=== PATIENT | male | born 1970 | race Caucasian/White ===

== ENCOUNTER → 2021-09-11 11:15 | Outpatient (CLI) | payer OTHER, SELFPAY ==
[2021-09-11 14:01] LABS: COVID-19 CEPHEID PCR (VTM/NP) Negative (Negative)
== END ==
PROVIDERS: PCP Physician Assistant; Visit Provider Family Medicine Sleep Medicine
DX: Z20.822 Contact with and (suspected) exposure to COVID-19 (principal)
CPT/HCPCS: C9803; U0003; U0005

== ENCOUNTER 2021-09-15 15:19 | Observation (INO) | payer OTHER, SELFPAY ==
[2021-09-10 12:44] VITALS: BMI 22.2
[2021-09-14] VITALS (20 sets, daily range): BP systolic 81–126; BP diastolic 3–86; PULSE 60–97; RESP 10–20; TEMP 35.6–37.3; O2SAT 89–100; BMI 22.2
--- NOTE | 2021-09-14 | DI.RAD.S_ITS ---
PROCEDURE: XR LUMBAR SPINE 2-3V INDICATIONS: L3-4 L4-5 L5-S1 TLIF TECHNIQUE: 2 views of the lumbar spine were acquired. COMPARISON: None. FINDINGS: Spot fluoroscopic images demonstrate posterior fusion from L3 through S1 with intervertebral spacers. There is trace retrolisthesis of L3 on L4, L4 on L5 and L5 on S1. Hardware appears intact. IMPRESSION: Posterior fusion as above. Dictated by: Norma Saldivar M.D. on 09/14/2021 at 20:32 Approved by: Norma Saldivar M.D. on 09/14/2021 at 20:33
--- NOTE | 2021-09-14 07:44 | SUR.PREOP ---
Pre-op medications placed per [place]. Pt with hx PONV.
--- NOTE | 2021-09-14 07:47 | PM.PREOP ---
Pre-operative Note COVID-19 COVID-19 status: Negative Result date/Date tested (Pos, Neg/Pending): 09/13/21 Criteria for continued procedure: Expected advancement of disease process, Possibility delay results in more complex future surgery or treatment, Increased loss of function, Continuing or worsening of significant or severe pain, Deterioration of the patient's condition or overall health and Delay expected to result in less-positive ultimate med/surg outcome Interval Note History & Physical reviewed/Exam performed by Physician: Yes Changes to H&P: No
[2021-09-14] MEDS: GABAPENTIN 300 MG CAPSULE 900 MG PO (07:48)
[2021-09-14] MEDS: SCOPOLAMINE 1 PATCH TOP (07:49)
--- NOTE | 2021-09-14 08:37 | SUR.OPER ---
Prone on spine table, head in foam head support, padded chest and pelvic supports, gel pad at knees, lower legs supported by pillows; nipples, genitalia and toes free of pressure, arms secured on foam padded arm boards at <90 degrees abduction. Tape over blanket at thigh secured to table.
[2021-09-14] MEDS: CEFAZOLIN 2 GM/20 ML SYRINGE IV ×2 (08:45→17:59)
[2021-09-14] MEDS: LACTATED RINGERS 1,000 ML 42 ML IV ×4 (08:47→15:53)
[2021-09-14] MEDS: BUPIVACAINE 0.25% (PF) 30 ML, EPINEPHrine 0.3 MG INJ (08:48)
[2021-09-14] MEDS: BUPIVACAINE LIPOSOME 266 MG/20 ML VIAL INJ (08:48)
[2021-09-14] MEDS: THROMBIN (RECOMBINANT) 5,000 UNIT VIAL 5000 UNIT TOP (10:41)
--- NOTE | 2021-09-14 14:18 | P.OP_ITS ---
Operative Date/Time/Diagnoses Date of procedure: 09/14/21 Time of procedure: 07:45 Pre-op diagnosis: 1. L3-4, L4-5, L5-S1 post laminectomy syndrome 2. L3-4, L4-5, L5-S1 foramen stenosis with radiculopathy Post-op diagnosis: same Procedure & Clinicians Procedure: 1. L3-4, L4-5, L5-S1 Postero-lateral and posterior interbody fusion 2. L3-4, L4-5, L5-S1 interbody cage placement. 3. L3-4, L4-5, L5-S1 decompressive laminectomy with bilateral facetecomies 4. L3-4, L4-5, L5-S1 Posterior segmental instrumentation 5. [place] of bone marrow from iliac crest 6. Utilization of microsurgical technique and operating microscope 7. Utilization of robotic navigation Same procedure as scheduled: Yes Indications: Patient has been having chronic back pain and worsening lumbar radiculopathy. Patient failed multiple conservative management with worsening pain weakness and numbness in her lower extremity. Patient has been having difficulty performing activity of daily living. After discussing risks benefits of treatment options, patient elected proceed with surgery. Surgeon: Ravin Benitez [employer] Teacher: Dipika Mas Click Yes if Unassisted: No Anesthesia Type: General Operative Notes Closure Type: primary Specimen(s): none sent Prosthetic devices, grafts, tissues, transplants, or devices: Globus CREO MIS screws, Rise cages Applied: catheter Estimated Blood Loss (mL): 450 Blood products transfused: none Procedure in detail: Patient was seen in the preoperative area. Risks and benefits of the surgery was discussed with the patient. Informed consent was obtained from the patient and placed in the chart. Surgical site was marked. Patient was taken to the operative room. General anesthesia was administered. Prophylactic antibiotic was given to the patient less than 30 min before the incision was made. Patient was placed into a prone position on the Hayes table. Patient's back was then prepped and draped in the sterile fashion. Time-out was performed at this time. After patient was prepped and draped, patient's PSIS was palpated and marked bilaterally. Small 1 cm incision was made over the PSIS for placement of the reference probes. Two trocar was placed into the PSIS 1 on each side. The reference probe was attached to the trocar of the reference apparatus. At this time the C-arm imaging was used to confirm AP and lateral of L3-4, L4- L5, L5-S1 vertebrae and merged the C-arm imaging using the [employer] robotic navigation system with the CT of the lumbar spine. After successful merging was completed and confirmed, skin marker was used to cesario out the skin incision using the [employer] robotic arm. Bilateral incision was made at this time. Pre templated trajectory was used and guided using the [employer] robotic navigation system for bilateral L3, L4, L5, S1 pedicle screw placement. This was done by using the robotic arm to guide the high-speed bur to make a cortical entry point. Next a drill was placed also using the robotic arm and guided using the navigation system drilling partially through bilateral L3, L4, L5 and S1 pedicles. Next L3, L4, L5, S1 pedicle screws it was pre templated and measured was placed onto the power dray driver and inserted into the pedicles bilaterally. After all 8 screws were placed C-arm imaging was taken of both AP and lateral to confirm the placement. Excellent placement of the screws were confirmed and a matched precisely with the pre planned screw placement using the navigation system. MARs retractor was inserted using [facility]. Globus MARS retractors was placed inside the incision and docked onto the L3, L4 and L5 lamina. Using microsurgical technique and operating microscope, a L3, L4, L5 laminectomy and L3-4, L4-5, L5-S1 facetectomy was performed using a Kerrison rongeur. Patient was found have severe lateral recess and neural foramen stenosis which was fully decompressed after the laminectomy facetectomy. More than 75% of the facets were removed during the process of decompression rendering L3-4, L4-5, L5-S1 level grossly unstable and required a fusion procedure at the same time. Patient was found to have significant amount of epidural scarring which was carefully released from the dura and nerves in the process of decompression at all 3 levels. The disc space at L3-4, L4-5, L5-S1 was identified, and a total diskectomy was performed at L3-4, L4-5, L5-S1 level. The endplates were decorticated using a rasp and shaver. The total diskectomy and decortication was performed at L3-4, L4-5, L5-S1 level in order to to accomplish a L3-4, L4-5, L5-S1 fusion. The local bone from the laminectomy and facetectomy was saved for local bone grafting. After the total diskectomy and decortication was completed, Trifecta bone graft material was combined with local bone that was harvested earlier. At this time, a separate skin is incision was made over the iliac crest. A Jamshidi needle was inserted into the iliac crest through a separate skin incision. 5 cc of bone marrow aspiration was obtained through the separate skin incision using a Jamshidi needle from the iliac crest. The bone marrow aspiration was combined with local bone and the Trifecta bone grafting material. The bone grafting material was placed into the L3-4, L4-5, L5-S1 interbody space along with a expandable cage. The cage was expanded to its maximum height using the torque limiting screwdriver. The disc preparation as well as the cage insertion were also performed under navigation guidance. After the cage was placed, AP and lateral C-arm imaging was taken to confirm placement of the cage and excellent position was confirmed. Globus MARS retractor was inserted and docked onto the L3-4, L4-5, L5-S1 posterolateral gutter on the right side. Using the power drill, posterior- lateral decortication was performed at L3-4, L4-5, L5-S1 level until bleeding cortical bone was identified. The remaining bone grafting material was placed into the L3-4, L4-5, L5-S1 posterior lateral gutter he order to accomplish posterolateral fusion at the L3-4, L4-5, L5-S1 level. At this time the tulips were attached to the L3, L4, L5, S1 pedicle screw shanks. After measuring the length of the rods, they were inserted into the tulips of the pedicle screws and locked in place using locking caps and torque limiting screwdriver bilaterally. Total 6 caps and 2 titanium rods was used in order to complete the posterior instrumentation construct. After all the hardware was placed, and confirmed with AP and lateral C-arm imaging, the wound was then irrigated with sterile normal saline and packed with Ray-Jairo gauze for 3 min to accomplish hemostasis. After the gauze was removed the deep fascia was closed with #1 Vicryl suture. The subcutaneous layer was closed with 2-0 Vicryl. The skin was closed with skin susan. Patient tolerated the procedure well. There were no complications. Neuro monitoring system was used to monitor patient's neurologic status throughout entire procedure. There was no disturbance of the neural monitoring signals throughout the case. Patient's bladder stimulator and wire was protected during entire case with the course of the wire and the machine visualized on x-ray at the beginning of the case and revisualized the end of the case which showed no changes and the wire position. Complications: none Post-operative Condition: stable Disposition: PACU Plan for aftercare: Admit to inpatient hospital
[2021-09-14] MEDS: LORazepam 2 MG/ML INJ 1 MG IM (15:03)
[2021-09-14] MEDS: SODIUM CHLORIDE 0.9% 1,000 ML 100 ML IV (17:47)
--- NOTE | 2021-09-14 18:14 | PC.NURSE ---
Pt arrived to room 214 via bed from PACU. Pt is sleepy but appropriate and calm and answers questions when asked. Spouse at the bedside. SCDs on and running. IV infusing as ordered. Given dinner tray and water to drink. Denies nausea and sob. Pt oriented to room, demonstrated how to use call light, tv controls, and bed controls. Bed alarm on for safety. Educated about not getting up without assistance. Discussed not bending at the waist, twisting, or lifting as ordered.
[2021-09-14] MEDS: HYDROMORPHONE 0.5 MG INJ IV (19:59)
[2021-09-14] MEDS: DIVALPROEX ER 250 MG TAB 500 MG PO (20:12)
[2021-09-14] MEDS: GABAPENTIN 600 MG TABLET 1800 MG PO (20:12)
[2021-09-14] MEDS: DOCUSATE 100 MG CAPSULE PO (20:12)
[2021-09-14] MEDS: buPROPion 75 MG TABLET PO (20:12)
[2021-09-14] MEDS: LOSARTAN 50 MG TABLET PO (20:13)
[2021-09-14] MEDS: PRAZOSIN 1 MG CAPSULE 6 MG PO (20:13)
[2021-09-14] MEDS: SENNOSIDES 8.6 MG TABLET 17.2 MG PO (20:13)
[2021-09-14] MEDS: OXYCODONE IR 5 MG TABLET 10 MG PO (22:28)
[2021-09-14] MEDS: hydrOXYzine pamoate 25 MG CAPSULE PO (22:29)
--- NOTE | 2021-09-14 22:54 | PC.NURSE ---
Patient is alert and oriented. Breath sounds CTA with RA sat of 100%. HRR. Denies nausea. BT hypoactive and denies flatus as yet following surgery. Indwelling catheter is patent; urine is clear yellow. Is able to turn himself in bed although does not adhere to log rolling instructions. Dressing to back intact; 50% covered with shadow drainage. States he has chronic tingling in all extremities but feels it has improved from pre-op sensation. Did complain of 7/10 pain earlier and was medicated with IV Dilaudid with good results and now again at 7/10 and agreeable to trying po pain meds so medicated with oxycodone + vistaril and ice pack provided. Bilateral foot SCD's applied. Reports having fallen twice in past 3 months so fall risk score is high and bed alarm is activated.
[2021-09-15] VITALS (13 sets, daily range): BP systolic 101–155; BP diastolic 52–67; PULSE 72–99; RESP 18–19; TEMP 36.1–38.8; O2SAT 96–99
[2021-09-15] MEDS: CEFAZOLIN 2 GM/20 ML SYRINGE IV (01:09)
[2021-09-15] MEDS: SODIUM CHLORIDE 0.9% 1,000 ML 100 ML IV ×3 (03:06→22:24)
[2021-09-15] MEDS: OXYCODONE IR 5 MG TABLET 10 MG PO ×4 (04:43→18:23)
[2021-09-15] MEDS: hydrOXYzine pamoate 25 MG CAPSULE PO ×2 (04:44→18:23)
[2021-09-15 05:37] LABS: Hematocrit 29.8 % (41-53); Hemoglobin 10.2 g/dL (13.5-17.5)
--- NOTE | 2021-09-15 07:45 | PM.PNPO.1 ---
Subjective Subjective Date Patient Seen: 09/15/21 Time Patient Seen: 07:45 Interval history: Pain is moderate. Denies fever or chills. No nausea / vomiting. Exam Vital Signs (past 8 hours): - 09/15/21 00:25 09/15/21 04:45 Temperature 99.3 F 98.6 F Pulse Rate 72 95 H Respiratory Rate 18 18 Blood Pressure 105/64 109/63 Pulse Oximetry 99 97 Oxygen Delivery Method Room Air Oxygen Flow Rate 0 Narrative Exam Narrative: 51-year-old male resting comfortably in bed in no apparent distress. Motor functions intact bilateral lower extremities. Sensation grossly intact to light touch bilateral lower extremities. Dressing is Clean, dry, intact.. Const General: cooperative Orientation: alert Resp Effort & Inspection: normal respiratory effort and able to speak in complete sentences Objective Labs Result Diagrams: 09/15/21 04:43 Labs: Laboratory Results - last 24 hr 09/15/21 04:43 Hgb 10.2 L Hct 29.8 L PFSH Medical History Anger Anxiety Asthma Depression Heart murmur HTN (hypertension) Increased storage iron Post-laminectomy syndrome Presence of neurostimulator PTSD (post-traumatic stress disorder) Sciatica Spinal stenosis TBI (traumatic brain injury) (2010) Surgical History H/O vasectomy (1996) History of fusion of cervical spine (06/03/11) History of fusion of cervical spine (2013) History of placement of ear tubes Hx of arthroscopy of right knee Hx of laminectomy (2014) Hx of tonsillectomy Social History household members: spouse and family Smoking Status: Never smoker alcohol intake: current Assessment & Plan Post-op Postoperative Procedures: Procedures Operation Date: 09/14/21 07:45 Actual Procedure Side Surgeon p L3-4, L4-5, L5-S1 TLIF w. posterior instrumentation - Robot Ravin Benitez MD Postoperative day: 1 Postoperative status: doing well Postoperative plan: routine post-op care Postoperative plan narrative: Mobilize with physical therapy Limit bending, lifting, twisting Multimodal pain management Disposition: Home today or tomorrow after physical therapy
[2021-09-15] MEDS: LOSARTAN 50 MG TABLET PO (08:02)
[2021-09-15] MEDS: GABAPENTIN 600 MG TABLET 1800 MG PO ×2 (08:02→20:14)
[2021-09-15] MEDS: DOCUSATE 100 MG CAPSULE PO ×2 (08:03→20:15)
--- NOTE | 2021-09-15 09:40 | PT.IIE ---
Current Diagnoses Spinal stenosis, lumbar region with neurogenic claudication (09/14/21) Postlaminectomy syndrome, not elsewhere classified (09/14/21) Surgery Performed Operation Date: 09/14/21 07:45 Actual Procedures p L3-4, L4-5, L5-S1 TLIF w. posterior instrumentation - Robot - Ravin Benitez MD Medical History (Last Reviewed 09/15/21 @ 07:46 by Ronnie Robins PA-C) Anger Anxiety Asthma Depression Heart murmur HTN (hypertension) Increased storage iron Post-laminectomy syndrome Presence of neurostimulator PTSD (post-traumatic stress disorder) Sciatica Spinal stenosis TBI (traumatic brain injury) (2010) Physical Therapy Inpatient Evaluation/Re-Eval M1 PT/OT-IP Prior Functional Status Start: 09/15/21 12:35 Freq: NEEDED Status: Active Protocol: Document 09/15/21 09:40 AB (Rec: 09/15/21 12:48 AB [email or web address]) Medical Review Prior Functional Status Medical History Reviewed Yes Communication able to make needs known Mobility and Gait pt stated that he is modified independent with all mobilities and ambulation using 4WW indoors and hiking stick for outdoor mobility Social History Household Members spouse,family Living Arrangements Mobile home Number of Floors (Floors) One Floor Number of Stairs To Enter/Railing? 3 steps B rails to enter Home Environment High Toilet,Walk in Shower Home Equipment Four Wheel Walker,Shower Seat with Backrest,Hand Held Shower ,Grab Bars Near Toilet,Grab Bars In Shower Additional Social History Comment has hiking stick M2 PT-IP Current Condition Start: 09/15/21 12:35 Freq: NEEDED Status: Active Protocol: Document 09/15/21 09:40 AB (Rec: 09/15/21 12:48 AB [email or web address]) Physical Therapy Current Condition Current Condition Evaluation Date 09/15/21 Treatment Diagnosis s/p L3-4,L4-5, L5S1 TLIF; difficulty in walking Onset Date 09/14/21 M3 PT-IP Subjective Start: 09/15/21 12:35 Freq: NEEDED Status: Active Protocol: Document 09/15/21 09:40 AB (Rec: 09/15/21 12:48 AB [email or web address]) Subjective Physical Therapy Visit Type Type Initial Evaluation Visit Start Time 09:40 Visit Stop Time 10:21 Total Visit Minutes 41 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 0 Physical Therapy Visit Comments Patient Comments agreeable to do PT Therapy Pain Assessment Pain When Pain Assessed At Rest Pain Present Pain Present Pain Reported Location Lower Back Intensity 8 Scale Used Numeric (0 - 10) Pain Management Techniques Apply Cold,Distraction, Modification of Treatment,Re- positioning,Timing of Activity with Medications M4 PT-IP Mobility and Gait Start: 09/15/21 12:35 Freq: NEEDED Status: Active Protocol: Document 09/15/21 09:40 AB (Rec: 09/15/21 12:48 AB [email or web address]) PT-Bed Mobility Assessment Rolling Type of Rolling Log Rolling Level of Assist Standby Assistance Supine to Sit Supine to Sit Standby Assistance PT-Transfer Assessment Sit to and From Stand Sit to and from Stand Minimal Assistance,1 Person Assistance,Use of Upper Extremities Equipment Transfer Assistive Device Gait Belt,Front Wheeled Walker Orthotic/Prosthetic Devices or Brace: No Transfers Transfer Destination Chair Transfer Technique Stand Step Pivot Transfer Ability Level of Assist Minimal Assistance Comments Mobility Comments educated pt on back precautions and log roll bed mobility. pt c/o decrease RLE sensation. BPin supine: 104/ 54 completed supine to sit log roll SBA. c/o initial dizziness but dissipated after a few minutes. BP with sitting 98/52. completed sit to stand min A and step transfer to chair using FWW min A. BP checked: 106/60. pt agreed to ambulate. completed sit to stand min A from the chair and ambualtion ~ 30 ft using FWW min A and cues. pt agreed to sit up on chair. positioned on chair. call ight and table placed within reach. caregiver training set up for this afternoon at ~ 130 pm. Gait Assessment Gait Gait Assistance Required: Minimum Assistance Distance (Feet) 30 Able to Maintain Weight Bearing Status Yes During Gait Assistive Devices Assistive Device Gait Belt,Front Wheeled Walker Orthotic/Prosthetic Devices or Brace: No Gait Deviations General Gait Pattern Decreased Stride Length, Decreased Feet Clearance Factors Limiting Gait Function Factors Limiting Gait Function Decreased Activity Tolerance, Decreased Sensation,Decreased Strength,Limited Range of Motion,Pain,Poor Balance,Poor Safety Awareness Comments Gait Comments pls refer to mobility section for details PT-Balance Assessment Sitting Balance and Reactions Static Sitting Balance Ability Good Dynamic Sitting Balance Ability Good Standing Balance and Reactions Static Standing Balance Ability Fair Dynamic Standing Balance Ability Fair Device Used FWW M5 PT-IP Objective Assessments Start: 09/15/21 12:35 Freq: NEEDED Status: Active Protocol: Document 09/15/21 09:40 AB (Rec: 09/15/21 12:48 AB [email or web address]) Orientation Orientation/Cognition Level of Alertness Alert Orientation Name Language Function Ability No Deficits Noted Safety Awareness Understands Safety Issues Memory Description No Deficits Noted Gross Range of Motion Lower Extremity ROM Assessment Within Functional Limits Strength Lower Extremity Strength Assessment Bilaterally Impaired Hip 3+/5 Knee 3+/5 Sensation Assessment Sensation Gross Sensation Right LE Impaired Sensation Description Numbness,Tingling Muscle Tone Muscle Tone WNL Yes M6 PT-IP Treatment Start: 09/15/21 12:35 Freq: NEEDED Status: Active Protocol: Document 09/15/21 09:40 AB (Rec: 09/15/21 12:48 AB [email or web address]) Physical Therapy Treatment Education Education Provided Precautions,Weight Bearing Status,Post-Op Packet,Safety M7 PT-IP Assessment and Plan Start: 09/15/21 12:35 Freq: NEEDED Status: Active Protocol: Document 09/15/21 09:40 AB (Rec: 09/15/21 12:48 AB [email or web address]) PT Summary Assessment and Plan Potential Rehabilitation Potential Good Status of Condition at Evaluation Evolving Summary Impairments Pain,ROM,Strength,Balance, Coordination,Sensation,Tone, Cognition,Bed Mobility, Transfers,Gait,Activity Tolerance Assessment Summary pt requirng min A with transfers and ambulation using FWW and c/o decrease RLE sensation. pt plans to go home and spouse to assist him at home. caregiver training set up for this afternoon at 130 pm. will continue to assess progress. Goals Bed Mobility Goal Independent Transfer Goal Independent,Front Wheeled Walker Gait Goal Independent,Front Wheel Walker Gait Distance 250 Other Goals improve ambulation using 4WW 250 ft mod I up/down 3 steps B rails SBA Days to Meet Goals 5 Frequency of Treatment Frequency Of Treatment Twice a Day Treatment Plan Physical Therapy Treatment Plan Bed Mobility Training,Transfer Training,Gait Training, Therapeutic Exercise,Balance Retraining,Post Op Education, Discharge Planning,Hot or Cold Pack,Neuromuscular Re-ed, Coordination Retraining,Manual Therapy Precautions Lumbar Precautions Log Roll,No Twisting,Limit Bending,Lifting Restriction of 10 lbs,Gait Belt above Incisional Area Recommendations To Nursing Amount of Assist Needed 1 Person Assist Discharge Recommendations PT Discharge Recommendations Home with Assistance Equipment Needed for Home Before FWW if not safe with 4WW Discharge Transportation Needs at Discharge Private Vehicle
--- NOTE | 2021-09-15 10:49 | OT.IP.EVAL ---
Current Diagnoses Spinal stenosis, lumbar region with neurogenic claudication (09/14/21) Postlaminectomy syndrome, not elsewhere classified (09/14/21) Surgery Performed Operation Date: 09/14/21 07:45 Actual Procedures p L3-4, L4-5, L5-S1 TLIF w. posterior instrumentation - Robot - Ravin Benitez MD Past Medical History (Last Reviewed 09/15/21 @ 07:46 by Ronnie Robins PA-C) Anger Anxiety Asthma Depression H/O vasectomy (1996) Heart murmur History of fusion of cervical spine (06/03/11) History of fusion of cervical spine (2013) History of placement of ear tubes HTN (hypertension) Hx of arthroscopy of right knee Hx of laminectomy (2014) Hx of tonsillectomy Increased storage iron Post-laminectomy syndrome Presence of neurostimulator PTSD (post-traumatic stress disorder) Sciatica Spinal stenosis TBI (traumatic brain injury) (2010) Surgical History (Last Reviewed 09/15/21 @ 07:46 by Ronnie Robins PA-C) H/O vasectomy (1996) History of fusion of cervical spine (06/03/11) History of fusion of cervical spine (2013) History of placement of ear tubes Hx of arthroscopy of right knee Hx of laminectomy (2014) Hx of tonsillectomy Occupational Therapy Inpatient Evaluation/Re-Eval M1 PT/OT-IP Prior Functional Status Start: 09/15/21 12:35 Freq: NEEDED Status: Active Protocol: Document 09/15/21 10:20 [facility] (Rec: 09/15/21 13:17 [facility] [id number]) Medical Review Prior Functional Status Medical History Reviewed Yes Communication able to make needs known Mobility and Gait pt stated that he is modified independent with all mobilities and ambulation using 4WW indoors and hiking stick for outdoor mobility Activities of Daily Living and IADL's Pt states having more difficulty to assist for socks /shoes and needing to have more assist now due to his pain. Social History Household Members spouse,family Living Arrangements Mobile home Number of Floors (Floors) One Floor Number of Stairs To Enter/Railing? 3 steps B rails to enter Home Environment High Toilet,Walk in Shower Home Equipment Four Wheel Walker,Shower Seat with Backrest,Hand Held Shower ,Grab Bars Near Toilet,Grab Bars In Shower Additional Social History Comment has hiking stick M2 OT-IP Current Condition Start: 09/15/21 13:02 Freq: Status: Active Protocol: Document 09/15/21 10:20 [facility] (Rec: 09/15/21 13:17 [facility] [id number]) Occupational Therapy Current Condition Current Condition Evaluation Date 09/15/21 Treatment Diagnosis S/p L3-4, L4-5, L5-S1 TLIF Diagnosis Onset Date 09/14/21 Post Operative Precautions Lumbar Precautions Log Roll,No Twisting,Limit Bending,Lifting Restriction of 10 lbs,Gait Belt above Incisional Area M3 OT- IP Subjective and Pain Start: 09/15/21 13:02 Freq: Status: Active Protocol: Document 09/15/21 10:20 [facility] (Rec: 09/15/21 13:17 [facility] [id number]) OT- Subjective Occupational Therapy Visit Type Type Initial Evaluation Visit Start Time 10:20 Visit Stop Time 10:49 Total Visit Minutes 29 Occupational Therapy Visit Comments Patient Comments Pt agreed to get up for OT eval. Patient/Caregiver Goals To go home. OT Pain Assessment Pain When Pain Assessed At Rest Pain Present Pain Present Pain Reported Location Lower Back Intensity 9 Scale Used Numeric (0 - 10) M4 OT- IP ADL's Start: 09/15/21 13:02 Freq: Status: Active Protocol: Document 09/15/21 10:20 [facility] (Rec: 09/15/21 13:17 [facility] [id number]) OT [id number] Comments OT Self-Feeding Comments Not at meal time. OT ADL-Grooming Comments OT Grooming Comments Pt decreased BP and therefore decided best to do grooming while seated. OT ADL-Oral Care General Eval Oral Care Ability Independent OT ADL-Dressing Comments OT Dressing Comments Pt has a market research executive at home and states his grand kids will assist with his socks and shoes at home. OT ADL-Toileting General Evaluation Toileting Ability Total Assistance Comments OT Toileting Comments [place] in place. Pt states prior had difficulty for his hygiene needs and that his assisted with his hygiene after bowel movements. OT ADL-Bathing Comments OT Bathing Comments Not performed. M5 OT- IP IADL's Start: 09/15/21 13:02 Freq: Status: Active Protocol: Document 09/15/21 10:20 [facility] (Rec: 09/15/21 13:17 [facility] [id number]) OT-Instrumental Activities of Daily Living Home Safety Awareness Home Safety Comments Pt will have assist from his family to be able to assist him for all needs. M6 OT- IP Functional Cognition Start: 09/15/21 13:02 Freq: Status: Active Protocol: Document 09/15/21 10:20 [facility] (Rec: 09/15/21 13:17 [facility] [id number]) Cognitive Factors Limiting Selfcare Function Cognitive Ability Level of Alertness Alert Patient Orientation Name,Age,Birthday,Month,Date, Year,Day of Week,Place, Situation Attention Span Ability Capable of Focused Attention, Capable of Sustained Attention Ability to Follow Commands Able to Follow Multi-Step Commands Cognitive Comments Cognitive Assessment Comments Pt able to state his back precautions and follow commands. OT- Vision and Hearing OT- Hearing Assessment OT- Hearing Assessment WFL OT- Vision Assessment Visual Acuity Contact Lenses M7 OT- IP Mobility and Balance Start: 09/15/21 13:02 Freq: Status: Active Protocol: Document 09/15/21 10:20 [facility] (Rec: 09/15/21 13:17 [facility] [id number]) OT-Transfer Assessment Sit to and From Stand Sit to and from Stand Minimal Assistance Comments Mobility Comments BP sitting 104/62, after standing 90/51 and feeling whoozy and dizzy and BP while seated 104/55. OT- Balance Assessment Sitting Balance and Reactions Static Sitting Balance Ability Good Standing Balance and Reactions Static Standing Balance Ability Fair M8 OT- IP Objective Assessments Start: 09/15/21 13:02 Freq: Status: Active Protocol: Document 09/15/21 10:20 [facility] (Rec: 09/15/21 13:17 [facility] [id number]) OT-Muscle Tone Assessment Muscle Tone WNL Yes M9 OT- IP Assessment and Plan Start: 09/15/21 13:02 Freq: Status: Active Protocol: Document 09/15/21 10:20 [facility] (Rec: 09/15/21 13:17 [facility] [id number]) OT Summary Assessment and Plan Potential Rehabilitation Potential Good Analytic Complexity at Evaluation Low Summary OT Impairments Pain,Balance,Functional Mobility,Grooming,Dressing, Toileting,Bathing,Toilet Transfers,Shower Transfers, Activity Tolerance Progress Towards Goals Slow Progress due to Medical Issues Assessment Summary Pt low complexity and has supportive family to be able to assist him when medically stable. Pt feeling dizzy while standing and BP dropped form 104/62 and 90/51, nursing notified. To go over showering needs with pt tomorrow if still here. Goals Self-Feeding Goal Independent Grooming Goal Independent Dressing Goal Minimal Assistance Toileting Goal Minimal Assistance Bathing Goal Minimal Assistance Toilet Transfer Goal Independent Shower Transfer Goal Independent Patient/Caregiver Education Goal Demonstrate Post-Op Precautions,Caregiver Independent Assisting Patient Days to Meet Goals 3 Frequency of Treatment Frequency Of Treatment Once a Day Treatment Plan OT Treatment Plan ADL Training,Functional Mobility,Patient/Family Education,Discharge Planning Other Treatment Recommendations and Next shower Treatment Focus Discharge Recommendations OT Discharge Recommendations Home with 13/12 Assist Available Transportation Needs at Discharge Private Vehicle
--- NOTE | 2021-09-15 12:23 | CM.DANOTE ---
Addendum entered by Dougie Lunsford 09/15/21 12:36: Discharge Planning/Care Management CM Discharge Assessment Start: 09/15/21 12:20 Freq: Status: Active Protocol: Document 09/15/21 12:20 [facility] (Rec: 09/15/21 12:22 [facility] [id number]) Discharge Planning Assessment Assigned Recordist Chief Dougie Lunsford PROPERTY AND EQUIPMENT CLERK DPOA/Assigned Designee Name Kimberly Hutchins Contact Information [phone] Advance Directives? No Advance Directives on File No History Provided By Patient Has Patient been admitted in last 30 No days? Prior Living Arrangements Mobile home Household Members spouse,family Type of transporation used prior to Drives own vehicle admit Independent with ADL's Yes Is patient alert and oriented? Yes Caregiver for Another No Barriers to Discharge No Discharge Plan Home Transportation Arrangement via POV Referrals Initiated None needed Whiteboard Updated in Patient Room with Yes name and ext. # of Recordist Chief Review Status In Process Next Review Type Continued Stay Review Pre-Anesthesia Assessment Start: 09/10/21 12:44 Freq: Status: Complete Protocol: Document 09/10/21 12:44 [facility] (Rec: 09/10/21 13:46 [facility] [id number]) Pre-Anesthesia Assessment PAC Comment Neurostim-To assist with urination. Implanted posterior right hip area Patient Information Reviewed Via Phone Assessment Assessment Completed With Patient H&P Completed Within 30 Days Yes Diagnostic Results BMP/CMP,CBC Comment Outside labs scanned, COVID screen @ 09/11/21 Primary Care Provider Lucero Byrne Seen Specialist in Last 12 Months Yes Specialist Seen Orthopedist Primary Language Polish Professional Development Director Required No Height 177.8 cm Weight 70.307 kg Body Mass Index (BMI) 22.2 Hearing Ability Normal Visual Assist Glasses Dentition Type Teeth, Natural Present Barriers to Learning None Hx Anesthesia Reactions Yes: Hypertension r/t pain, PONV Hx Family Anesthesia Reaction No Hx Malignant Hyperthermia No Hx Blood Transfusions No Anesthesia Review Requested No alcohol intake current alcohol intake frequency a few times a month Smoking Status Never smoker Substance Use Type does not use Pain Present Pain Reported Musculoskeletal Symptoms Back Pain,Difficulty Walking, Muscle Cramps,Muscle Spasms, Muscle Weakness,Numbness, Radiating Pain into Limb, Tingling History of Falling (Recent or History of Yes ) Patient is completely paralyzed or No completely immobile Mental Status Oriented to own ability Comment Walking stick Is patient on oxygen? No Does patient have [place]/SOB Yes Hx Sleep Apnea No Currently Taking a Beta Ortega Yes: Propranolol Hx Chest Pain No Hx SOB Yes: Scheduled for Stress test @ [facility] 09/11/21 Hx Syncope or Dizziness No Anti-Coagulant Therapy No Has a Oil Truck Driver No Cardiac Testing Yes: Scheduled for Stress test @ [facility] 09/11/21 Hx Pacemaker/ICD No Pacemaker Rep Required? No Diet Type At Home Regular dysphagia No Gastrointestinal Symptoms Constipation,Fecal Incontinence Comment r/t back issues Bladder Pattern Incontinent Urinary Catheter Present No Hx Urinary Self Catheterization No Comment r/t back issues Diabetes No Hx Drug Resistant Organism No Presence of External or Internal Medical Yes: neck, neuro-stim in lower Devices back Have you had any close contact with No someone diagnosed with COVID-19? Received a COVID vaccine? No Marital Status Lives With spouse,family Prior Living Arrangements Mobile home Number of Floors (Floors) One Floor Support System Spouse Does the Patient Have Assistance After Yes Surgery Patient Discharge Plan Description Return Home Comment Pt advised a few days length of stay per surgeon Feels Safe in Current Environment Yes Been Physically Hurt or Threatened By a No Person in Current Environment Do you have thoughts of harming yourself None or others? Are you currently considering suicide? No Do you have a plan to hurt yourself or No Plan others? Do You Have Any Spiritual Beliefs That No May Affect Your HC Choices? Do You Have Any Cultural Practices That No May Affect Your HC Choices? Who Can We Speak to About Patient's Care Family, friends Identifying Code for Release of Patient Declines to issue Information Health Care Proxy/Next of Kin Kimberly () Health Care Proxy Emergency Contact Name Kimberly () Emergency Contact Advance Directives? Yes Advance Directives on File No Requested Patient Bring Advanced Yes Directives DOS Power of Concentrator Operator Yes Power of Concentrator Operator Name Kimberly () Power of Concentrator Operator PAC Instructions Durable medical equipment, Medications to take/avoid, Nasal antibiotic,No ETOH/ petroleum product on skin DOS, NPO,Pre-surgical wash,Sensory aids,Sturdy shoes/comfortable clothes,Do not bring valuables and remove jewelry Original Note: Discharge Assessment Note: Patient is 51yo male admitted post op TLIF performed by Dr. Benitez. Patient resides at home with his and sister. Patient reports he has no history with HH or SNF and has 4WW available for use as needed. Patient reported he feels able to attend PT appts as needed on o/p status. Patient does not identify any discharge needs at this time. Patient stated his will be here later today to meet with PT to learn how he should use DME and care for self at home post discharge. PCP Lucero Byrne [place] [employer] Medicare Adv Patient anticipates discharging home tomorrow 09/16 they are looking into my heart rate change right now. Patient states will be able to transport him home via POV when discharged. No dc planning needs identified. Dougie KAPLAN
--- NOTE | 2021-09-15 13:40 | PT.IPTN ---
Current Diagnoses Spinal stenosis, lumbar region with neurogenic claudication (09/14/21) Postlaminectomy syndrome, not elsewhere classified (09/14/21) Surgery Performed Operation Date: 09/14/21 07:45 Actual Procedures p L3-4, L4-5, L5-S1 TLIF w. posterior instrumentation - Robot - Ravin Benitez MD Physical Therapy Treatment Note M2 PT-IP Current Condition Start: 09/15/21 12:35 Freq: NEEDED Status: Active Protocol: Document 09/15/21 09:40 AB (Rec: 09/15/21 12:48 AB [id number]) Physical Therapy Current Condition Current Condition Evaluation Date 09/15/21 Treatment Diagnosis s/p L3-4,L4-5, L5S1 TLIF; difficulty in walking Onset Date 09/14/21 M3 PT-IP Subjective Start: 09/15/21 12:35 Freq: NEEDED Status: Active Protocol: Document 09/15/21 13:19 [facility] (Rec: 09/15/21 13:58 [facility] [id number]) Subjective Physical Therapy Visit Type Type Treatment Note Visit Start Time 13:19 Visit Stop Time 13:40 Total Visit Minutes 21 Notes Pts present for caregiver training Number of PUG MACHINE OPERATOR Visits 1 Physical Therapy Visit Comments Patient Comments agreeable to do PT Therapy Pain Assessment Pain When Pain Assessed During Weight Bearing Pain Present Pain Present Pain Reported Location Lower Back Intensity 7 Scale Used Numeric (0 - 10) Pain Behaviors Guarding,Wincing Pain Management Techniques Apply Cold,Distraction, Modification of Treatment,Re- positioning,Timing of Activity with Medications M4 PT-IP Mobility and Gait Start: 09/15/21 12:35 Freq: NEEDED Status: Active Protocol: Document 09/15/21 13:19 [place] (Rec: 09/15/21 13:58 [facility] [id number]) PT-Bed Mobility Assessment Rolling Type of Rolling Log Rolling Level of Assist Standby Assistance Supine to Sit Supine to Sit Standby Assistance Sit to Supine Sit to Supine Standby Assistance Scooting Scooting to Edge of Bed Standby Assistance PT-Transfer Assessment Sit to and From Stand Sit to and from Stand Minimal Assistance,1 Person Assistance,Use of Upper Extremities Equipment Transfer Assistive Device Gait Belt,Front Wheeled Walker Orthotic/Prosthetic Devices or Brace: No Transfers Transfer Destination Bed Transfer Technique Pt ambulated w/ FWW Transfer Ability Level of Assist Minimal Assistance,1 Person Assistance,Use of Upper Extremities Comments Mobility Comments Pt in bed upon arrival and reporting pain. Able to recall 3/3 spinal precautions. SBA for logroll and sidelying<>sit as well as scooting to EOB. Pt reported dizziness w/ sitting EOB. BP sittin/61 . Demonstrated gait belt application to pts and how to stabilize pts FWW and assist w/ sit<>stand. Pt Min A w/ cues for hand placement for sit<>stand w/ FWW. Pt reports continued dizziness when standing - BP: 118/61. Pt then ambulated ~30 ft w/ FWW and CGA w/ cues for upright posture and decreased foot clearance and stride length. Pt reports 7/10 pain when ambulating and requested to be done/get back into bed. CGA for stand<>sit, SBA for sit<> sup/logroll back into bed. Pt left in bed w/ all needs in reach. Refused stair training today due to pain and lack of sensation. Left in bed w/ all needs in reach. Gait Assessment Gait Gait Assistance Required: Contact Guard Assist,1 Person Assist Distance (Feet) 30 Able to Maintain Weight Bearing Status Yes During Gait Assistive Devices Assistive Device Gait Belt,Front Wheeled Walker Orthotic/Prosthetic Devices or Brace: No Gait Deviations General Gait Pattern Decreased Stride Length, Decreased Feet Clearance Factors Limiting Gait Function Factors Limiting Gait Function Decreased Activity Tolerance, Decreased Sensation,Decreased Strength,Limited Range of Motion,Pain,Poor Balance,Poor Safety Awareness Comments Gait Comments pls refer to mobility section for details Stair Climbing Assessment Comments Stair Climbing Comments Pt unable to complete today due to pain, weakness, dizziness, and lack of sensation. PT-Balance Assessment Sitting Balance and Reactions Static Sitting Balance Ability Good Dynamic Sitting Balance Ability Good Standing Balance and Reactions Static Standing Balance Ability Fair Dynamic Standing Balance Ability Fair Device Used FWW M5 PT-IP Objective Assessments Start: 09/15/21 12:35 Freq: NEEDED Status: Active Protocol: Document 09/15/21 09:40 [facility] (Rec: 09/15/21 12:48 AB [id number]) Orientation Orientation/Cognition Level of Alertness Alert Orientation Name Language Function Ability No Deficits Noted Safety Awareness Understands Safety Issues Memory Description No Deficits Noted Gross Range of Motion Lower Extremity ROM Assessment Within Functional Limits Strength Lower Extremity Strength Assessment Bilaterally Impaired Hip 3+/5 Knee 3+/5 Sensation Assessment Sensation Gross Sensation Right LE Impaired Sensation Description Numbness,Tingling Muscle Tone Muscle Tone WNL Yes M6 PT-IP Treatment Start: 09/15/21 12:35 Freq: NEEDED Status: Active Protocol: Document 09/15/21 13:19 [facility] (Rec: 09/15/21 13:58 [facility] [id number]) Physical Therapy Treatment Education Education Provided Precautions,Weight Bearing Status,Post-Op Packet,Safety M7 PT-IP Assessment and Plan Start: 09/15/21 12:35 Freq: NEEDED Status: Active Protocol: Document 09/15/21 13:19 [facility] (Rec: 09/15/21 13:58 [facility] [id number]) PT Summary Assessment and Plan Potential Rehabilitation Potential Good Status of Condition at Evaluation Evolving Summary Impairments Pain,ROM,Strength,Balance, Coordination,Sensation,Tone, Cognition,Bed Mobility, Transfers,Gait,Activity Tolerance Assessment Summary Pt SBA for bed mobility, Min A for sit<>stand, and CGA for ambulation. Pt only able to tolerate 30 ft w/ FWW and unable to participate in stair training due to pain, weakness, mild dizziness, and lack of sensation R>L. Initiated caregiver training, but will need to complete caregiver training and stair training prior to d/c. Pt not yet safe to d/c home. Goals Bed Mobility Goal Independent Transfer Goal Independent,Front Wheeled Walker Gait Goal Independent,Front Wheel Walker Gait Distance 250 Other Goals improve ambulation using 4WW 250 ft mod I up/down 3 steps B rails SBA Days to Meet Goals 5 Frequency of Treatment Frequency Of Treatment Twice a Day Treatment Plan Physical Therapy Treatment Plan Bed Mobility Training,Transfer Training,Gait Training, Therapeutic Exercise,Balance Retraining,Post Op Education, Discharge Planning,Hot or Cold Pack,Neuromuscular Re-ed, Coordination Retraining,Manual Therapy Precautions Lumbar Precautions Log Roll,No Twisting,Limit Bending,Lifting Restriction of 10 lbs,Gait Belt above Incisional Area Recommendations To Nursing Amount of Assist Needed 1 Person Assist Discharge Recommendations PT Discharge Recommendations Home with Assistance Equipment Needed for Home Before FWW if not safe with 4WW Discharge Transportation Needs at Discharge Private Vehicle
[2021-09-15] MEDS: SENNOSIDES 8.6 MG TABLET 17.2 MG PO (20:13)
[2021-09-15] MEDS: ACETAMINOPHEN 325 MG TABLET 650 MG PO (20:14)
[2021-09-15] MEDS: DIVALPROEX ER 250 MG TAB 500 MG PO (20:14)
[2021-09-15] MEDS: buPROPion 75 MG TABLET PO (20:15)
[2021-09-15] MEDS: HYDROMORPHONE 0.5 MG INJ IV (20:15)
[2021-09-16] MEDS: OXYCODONE IR 5 MG TABLET 10 MG PO ×3 (01:03→08:43)
--- NOTE | 2021-09-16 02:38 | PC.NURSE ---
BP 112/60, HR 86. Blood pressure medications Losartan and Prazosin held per Dr. Hicks.
--- NOTE | 2021-09-16 07:41 | PM.DS.1 ---
History of Present Illness History of Present Illness Date Patient Seen: 09/16/21 Time Patient Seen: 07:41 Chief complaint: Back pain Narrative: Pain is been moderate to severe. Patient states his pain is currently well controlled though. No fever chills. No nausea vomiting. Discharge Providers Provider Date of admission: 09/15/21 15:19 Discharge Date: 09/16/21 Primary care physician: Lucero Byrne PA-C Consults: 09/14/21 16:14 Consult to Occupational Therapy Evaluate & Treat Comment: Physician Instructions: Evaluate and treat Consult to Physical Therapy Evaluate & Treat Comment: Physician Instructions: Evaluate and Treat 09/14/21 17:05 Consult to [facility] [place] - Electrode Cleaning Machine Operator Routine Comment: Discharge provider: Ronnie Robins PA-C Summary Hospital Course Discharge Diagnosis: 1. L3-4, L4-5, L5-S1 post laminectomy syndrome 2. L3-4, L4-5, L5-S1 foramen stenosis with radiculopathy Hospital Course: 1. L3-4, L4-5, L5-S1 Postero-lateral and posterior interbody fusion 2. L3-4, L4-5, L5-S1 interbody cage placement. 3. L3-4, L4-5, L5-S1 decompressive laminectomy with bilateral facetecomies 4. L3-4, L4-5, L5-S1 Posterior segmental instrumentation 5. [place] of bone marrow from iliac crest 6. Utilization of microsurgical technique and operating microscope 7. Utilization of robotic navigation Same procedure as scheduled: Yes Indications: Patient has been having chronic back pain and worsening lumbar radiculopathy. Patient failed multiple conservative management with worsening pain weakness and numbness in her lower extremity.? Patient has been having difficulty performing activity of daily living.? After discussing risks benefits of treatment options, patient elected proceed with surgery. Surgeon: Ravin Benitez Heavy Equipment Engine Mechanic: Dipika Mas Click Yes if Unassisted: No Anesthesia Type: General Operative Notes Closure Type: primary Specimen(s): none sent Prosthetic devices, grafts, tissues, transplants, or devices: Globus CREO MIS screws, Rise cages Applied: catheter Estimated Blood Loss (mL): 450 Blood products transfused: none Patient admitted for the above-mentioned procedure. Patient consented to the same. Patient underwent lumbar fusion on September 14, 2021. Patient back in his room recovering well as in stable condition. Patient will be discharged home today after physical therapy in stable condition. Status at Discharge Cognitive/behavioral status at discharge: at baseline, oriented Functional status at discharge: uses cane/walker Overall status at discharge: patient is progressing back to baseline Exam Vital Signs (past 8 hours): - 09/15/21 23:54 Temperature 97 F L Pulse Rate 85 Respiratory Rate 19 Blood Pressure 105/55 L Pulse Oximetry 97 Oxygen Delivery Method Room Air Oxygen Flow Rate 0 Narrative Exam Narrative: 51-year-old male resting comfortably in bed in no apparent distress. Motor functions intact bilateral lower extremities. Sensation grossly intact to light touch bilateral lower extremities. Dressing is Clean, dry, intact.. Const General: cooperative Orientation: alert Resp Effort & Inspection: normal respiratory effort and able to speak in complete sentences Objective Labs Result Diagrams: 09/15/21 04:43 [facility] Medical History Anger Anxiety Asthma Depression Heart murmur HTN (hypertension) Increased storage iron Post-laminectomy syndrome Presence of neurostimulator PTSD (post-traumatic stress disorder) Sciatica Spinal stenosis TBI (traumatic brain injury) (2010) Surgical History H/O vasectomy (1996) History of fusion of cervical spine (06/03/11) History of fusion of cervical spine (2013) History of placement of ear tubes Hx of arthroscopy of right knee Hx of laminectomy (2014) Hx of tonsillectomy Social History household members: spouse and family Smoking Status: Never smoker alcohol intake: current Discharge Assessment & Plan Assessment and Plan Assessment: Patient progressing as expected status post lumbar fusion Plan of Treatment: Mobilize with physical therapy Multimodal pain management Limit bending, twisting, lifting Discharge home today in stable condition. Discharge Plan Discharge Plan Patient Disposition: Home Discharge orders & Medications Prescriptions: New acetaminophen 325 mg Tablet 650 mg PO Q6HR PRN (Reason: Pain, Mild (1-3)) Qty: 60 0RF docusate sodium 100 mg Capsule 100 mg PO BID Qty: 20 0RF oxycodone 5 mg Tablet 10 mg PO Q3HR PRN (Reason: Pain, Severe (7-10)) Qty: 60 0RF hydroxyzine pamoate 25 mg Capsule 25 mg PO Q4HR PRN (Reason: Nausea And Vomiting) Qty: 40 0RF hydromorphone [Dilaudid] 2 mg tablet 2 mg PO Q6H PRN (Reason: pain (scale score 7-10)) Qty: 20 0RF Continued losartan 50 mg Tablet 50 mg PO BID 0RF gabapentin 600 mg Tablet 1,800 mg PO BID 0RF valproic acid 250 mg Capsule 500 mg PO BEDTIME 0RF propranolol 80 mg Capsule,Extended Release 24 Hr 80 mg PO QAM 0RF bupropion HCl 75 mg Tablet 75 mg PO BEDTIME 0RF prazosin 2 mg Capsule 6 mg PO BEDTIME 0RF desvenlafaxine 100 mg Tablet Extended Release 24 Hr 100 mg PO DAILY 0RF albuterol sulfate 90 mcg/actuation Hfa Aerosol Inhaler 2 puff INHALATION Q4-6H PRN (Reason: Shortness Of Breath) 0RF Discontinued aspirin [Aspir-81] 81 mg Tablet,Delayed Release (Dr/Ec) 81 mg PO DAILY 0RF Follow up/Referrals: Lucero Byrne PA-C [Primary Care Provider] - Ravin Benitez MD [Physician] - (2 weeks) Diet/Activity/Treatments Diet: Diet as Tolerated Activity: Limit bending, twisting, lifting Cold/Heat Therapy: ice as needed Skin/Wound/Dressing Care Report to your healthcare provider any signs of infection, such as:: chills, fever, increased pain, unusual drainage and unusual redness Dressing: keep dressing clean and dry Visit Report/Discharge Packet Instructions: DI for Prescription Opioid Use, DI for Transforaminal Lumbar Interbody Fusion Stand Alone Forms: Surgery Discharge Discharge Data Primary Care Provider: Lucero Byrne I Attending Provider: Ravin Benitez
[2021-09-16 08:42] VITALS: BP 133/72; PULSE 87
[2021-09-16] MEDS: GABAPENTIN 600 MG TABLET 1800 MG PO (08:42)
[2021-09-16] MEDS: PROPRANOLOL ER 80 MG CAP.SA.24H PO (08:42)
[2021-09-16] MEDS: DOCUSATE 100 MG CAPSULE PO (08:42)
[2021-09-16] MEDS: LOSARTAN 50 MG TABLET PO (08:42)
--- NOTE | 2021-09-16 10:33 | PT.IPTN ---
Current Diagnoses Spinal stenosis, lumbar region with neurogenic claudication (09/15/21) Postlaminectomy syndrome, not elsewhere classified (09/15/21) Surgery Performed Operation Date: 09/14/21 07:45 Actual Procedures p L3-4, L4-5, L5-S1 TLIF w. posterior instrumentation - Robot - Ravin Benitez MD Physical Therapy Treatment Note M2 PT-IP Current Condition Start: 09/15/21 12:35 Freq: NEEDED Status: Active Protocol: Document 09/15/21 09:40 AB (Rec: 09/15/21 12:48 AB [id number]) Physical Therapy Current Condition Current Condition Evaluation Date 09/15/21 Treatment Diagnosis s/p L3-4,L4-5, L5S1 TLIF; difficulty in walking Onset Date 09/14/21 M3 PT-IP Subjective Start: 09/15/21 12:35 Freq: NEEDED Status: Active Protocol: Document 09/16/21 10:13 KS (Rec: 09/16/21 11:11 KS [id number]) Subjective Physical Therapy Visit Type Type Treatment Note Visit Start Time 10:13 Visit Stop Time 10:33 Total Visit Minutes 20 Notes Pts present for caregiver training Number of FUEL CELL ASSEMBLER Visits 2 Physical Therapy Visit Comments Patient Comments agreeable to do PT Therapy Pain Assessment Pain When Pain Assessed At Rest Pain Present Pain Present Pain Reported Location Lower Back Intensity 6 Scale Used Numeric (0 - 10) Pain Behaviors Guarding,Wincing Pain Management Techniques Distraction,Re-positioning, Timing of Activity with Medications M4 PT-IP Mobility and Gait Start: 09/15/21 12:35 Freq: NEEDED Status: Active Protocol: Document 09/16/21 10:13 KS (Rec: 09/16/21 11:11 KS [id number]) PT-Bed Mobility Assessment Rolling Type of Rolling Log Rolling Level of Assist Standby Assistance Supine to Sit Supine to Sit Standby Assistance Sit to Supine Sit to Supine Standby Assistance Scooting Scooting to Edge of Bed Standby Assistance PT-Transfer Assessment Sit to and From Stand Sit to and from Stand Standby Assistance,1 Person Assistance,Use of Upper Extremities Equipment Transfer Assistive Device Gait Belt,Front Wheeled Walker Orthotic/Prosthetic Devices or Brace: No Transfers Transfer Destination Chair Transfer Technique Pt ambulated w/ FWW Transfer Ability Level of Assist Standby Assistance,1 Person Assistance,Use of Upper Extremities Comments Mobility Comments Pt in bed upon arrival w/ in room and agreeable to PT. Able to recall 3/3 spinal precautions. SBA for logroll and sidelying<>sit as well as sit<>stand w/ 4WW. Pt then ambulated ~50 ft w/ 4WW and took seated rest break due to mild dizziness - BP stable. Pt ambulated remaining distance to stairs and ascended/ descended 3 steps w/ bilateral hand rails step to pattern ascending and step over step decscending w/ providing CGA. Pt states he feels confident to safely complete steps at home. After brief seated rest break, pt ambulated ~100 ft back to room w/ 4WW and providing CGA . Pt returned to chair and left in chair w/ all needs in reach. Gait Assessment Gait Gait Assistance Required: Contact Guard Assist,1 Person Assist Distance (Feet) 100 Able to Maintain Weight Bearing Status Yes During Gait Assistive Devices Assistive Device Gait Belt,4 Wheeled Walker Gait Deviations General Gait Pattern Decreased Stride Length, Decreased Feet Clearance Factors Limiting Gait Function Factors Limiting Gait Function Decreased Activity Tolerance, Decreased Sensation,Decreased Strength,Limited Range of Motion,Pain,Poor Balance,Poor Safety Awareness Comments Gait Comments Pt able to safely ambulate w/ 4WW. Stair Climbing Assessment Evaluation Level of Assist On Stairs Contact Guard Assistance,1 Person Assistance Devices Stair Climbing Assistive Devices Left Railing,Right Railing Technique/Endurance Stair Climbing Direction Ascend and Descend Stair Climbing Technique Step Over Step,Step to Step Number of Steps Climbed 3 Stair Climbing Set # Repetitions (reps) 1 Comments Stair Climbing Comments Pt ascended/descended 3 steps w/ bilateral hand rails step to step ascending, step over step descending w/ providing CGA. Pt and feel safe to complete steps leading into home. PT-Balance Assessment Sitting Balance and Reactions Static Sitting Balance Ability Good Dynamic Sitting Balance Ability Good Standing Balance and Reactions Static Standing Balance Ability Good Dynamic Standing Balance Ability Good Device Used 4WW M5 PT-IP Objective Assessments Start: 09/15/21 12:35 Freq: NEEDED Status: Active Protocol: Document 09/15/21 09:40 AB (Rec: 09/15/21 12:48 AB [id number]) Orientation Orientation/Cognition Level of Alertness Alert Orientation Name Language Function Ability No Deficits Noted Safety Awareness Understands Safety Issues Memory Description No Deficits Noted Gross Range of Motion Lower Extremity ROM Assessment Within Functional Limits Strength Lower Extremity Strength Assessment Bilaterally Impaired Hip 3+/5 Knee 3+/5 Sensation Assessment Sensation Gross Sensation Right LE Impaired Sensation Description Numbness,Tingling Muscle Tone Muscle Tone WNL Yes M6 PT-IP Treatment Start: 09/15/21 12:35 Freq: NEEDED Status: Active Protocol: Document 09/16/21 10:13 KS (Rec: 09/16/21 11:11 KS [id number]) Physical Therapy Treatment Education Education Provided Precautions,Weight Bearing Status,Post-Op Packet,Safety Other Treatments Other Treatment Performed Completed caregiver training w / pts . M7 PT-IP Assessment and Plan Start: 09/15/21 12:35 Freq: NEEDED Status: Active Protocol: Document 09/16/21 10:13 KS (Rec: 09/16/21 11:11 KS [id number]) PT Summary Assessment and Plan Potential Rehabilitation Potential Good Status of Condition at Evaluation Evolving Summary Impairments Pain,ROM,Strength,Balance, Coordination,Sensation,Tone, Cognition,Bed Mobility, Transfers,Gait,Activity Tolerance Assessment Summary Pt SBA for bed mobility and transfers, CGA for ambulation and stair training. Completed caregiver training w/ pts who was able to apply gaitbelt and provide appropriate assist and cues for bed mobility, transfers, ambulation, and stairs. Pt ambulated safely w/ 4WW and ascended/descended 3 steps CGA . He is safe to go home w/ assisting when medically stable. Goals Bed Mobility Goal Independent Transfer Goal Independent,Front Wheeled Walker Gait Goal Independent,Front Wheel Walker Gait Distance 250 Other Goals improve ambulation using 4WW 250 ft mod I up/down 3 steps B rails SBA Days to Meet Goals 5 Frequency of Treatment Frequency Of Treatment Twice a Day Treatment Plan Physical Therapy Treatment Plan Bed Mobility Training,Transfer Training,Gait Training, Therapeutic Exercise,Balance Retraining,Post Op Education, Discharge Planning,Hot or Cold Pack,Neuromuscular Re-ed, Coordination Retraining,Manual Therapy Precautions Lumbar Precautions Log Roll,No Twisting,Limit Bending,Lifting Restriction of 10 lbs,Gait Belt above Incisional Area Recommendations To Nursing Amount of Assist Needed 1 Person Assist Discharge Recommendations PT Discharge Recommendations Home with Assistance Transportation Needs at Discharge Private Vehicle
--- NOTE | 2021-09-16 11:02 | PC.NURSE ---
Discharge note: Patient discharged home per MD order. Discussed importance of F/U with Dr. Benitez in two weeks, new medications, signs of worsening symptoms, and mobility precautions. Cleared by PT/OT. In shower with OT prior to discharge. Dressing to mid lower back, changed. Patient and spouse, verbalized understanding of discharge instructions. Home via private vehicle, accompanied by spouse. RX to picked up at [facility].
--- NOTE | 2021-09-16 11:03 | OT.IP.TRT ---
Current Diagnoses Spinal stenosis, lumbar region with neurogenic claudication (09/15/21) Postlaminectomy syndrome, not elsewhere classified (09/15/21) Surgery Performed Operation Date: 09/14/21 07:45 Actual Procedures p L3-4, L4-5, L5-S1 TLIF w. posterior instrumentation - Robot - Ravin Benitez MD Occupational Therapy Treatment Note M2 OT-IP Current Condition Start: 09/15/21 13:02 Freq: Status: Discharge Protocol: Document 09/15/21 10:20 [facility] (Rec: 09/15/21 13:17 [facility] [id number]) Occupational Therapy Current Condition Current Condition Evaluation Date 09/15/21 Treatment Diagnosis S/p L3-4, L4-5, L5-S1 TLIF Diagnosis Onset Date 09/14/21 Post Operative Precautions Lumbar Precautions Log Roll,No Twisting,Limit Bending,Lifting Restriction of 10 lbs,Gait Belt above Incisional Area M3 OT- IP Subjective and Pain Start: 09/15/21 13:02 Freq: Status: Discharge Protocol: Document 09/16/21 10:37 [facility] (Rec: 09/16/21 12:27 [facility] [id number]) OT- Subjective Occupational Therapy Visit Type Type Treatment Note Visit Start Time 10:37 Visit Stop Time 11:03 Total Visit Minutes 26 Occupational Therapy Visit Comments Patient Comments Pt's present for caregiver training and pt agreed to shower. Patient/Caregiver Goals TO go home. OT Pain Assessment Pain When Pain Assessed During Mobility Pain Present Pain Present Pain Reported M4 OT- IP ADL's Start: 09/15/21 13:02 Freq: Status: Discharge Protocol: Document 09/16/21 10:37 [facility] (Rec: 09/16/21 12:27 [facility] [id number]) OT [id number] Comments OT Self-Feeding Comments Not at meal time. OT ADL-Oral Care Comments Oral Care Comments Educated best to hinge at his hips or spit into a cup to best follow his back precautions. OT ADL-Dressing General Eval Lower Body Dressing Ability Minimal Assistance Comments OT Dressing Comments Pt able to comfortably cross his legs over to do his socks, otherwise his family able to assist. Pt not open to using LB dressing equipment at this time. Pt's able to assist pt as needed at home. OT ADL-Toileting Comments OT Toileting Comments Pt able to stand and reach back appropriately to wipe today if needed. Educated would be easier to use wet wipe. OT ADL-Bathing General Evaluation Bathing Ability Moderate Assistance Areas Needing Assistance Wash/Dry Back,Wash/Dry Lower Extremities Comments OT Bathing Comments Pt's able to assist pt for showering needs, pt able to stand for part of his shower. M5 OT- IP IADL's Start: 09/15/21 13:02 Freq: Status: Discharge Protocol: Document 09/15/21 10:20 [facility] (Rec: 09/15/21 13:17 [facility] [id number]) OT-Instrumental Activities of Daily Living Home Safety Awareness Home Safety Comments Pt will have assist from his family to be able to assist him for all needs. M6 OT- IP Functional Cognition Start: 09/15/21 13:02 Freq: Status: Discharge Protocol: Document 09/16/21 10:37 [facility] (Rec: 09/16/21 12:27 [facility] [id number]) Cognitive Factors Limiting Selfcare Function Cognitive Comments Cognitive Assessment Comments Pt is a little impatient and needing cues to slow down. M7 OT- IP Mobility and Balance Start: 09/15/21 13:02 Freq: Status: Discharge Protocol: Document 09/16/21 10:37 [facility] (Rec: 09/16/21 12:27 [facility] [id number]) OT-Transfer Assessment Sit to and From Stand Sit to and from Stand Standby Assistance Transfers Transfer Ability Standby Assistance Technique Transfer Destination Chair,Shower Stall Transfer Technique Stand Step Pivot Devices Transfer Assistive Devices None,Gait Belt,4 Wheeled Walker Comments Mobility Comments SBA with 4ww and pt's CGA while pt stepping into the shower. OT- Balance Assessment Sitting Balance and Reactions Static Sitting Balance Ability Normal Dynamic Sitting Balance Ability Good Standing Balance and Reactions Static Standing Balance Ability Good Dynamic Standing Balance Ability Fair M8 OT- IP Objective Assessments Start: 09/15/21 13:02 Freq: Status: Discharge Protocol: Document 09/15/21 10:20 [facility] (Rec: 09/15/21 13:17 [facility] [id number]) OT-Muscle Tone Assessment Muscle Tone WNL Yes M9 OT- IP Assessment and Plan Start: 09/15/21 13:02 Freq: Status: Discharge Protocol: Document 09/16/21 10:37 [facility] (Rec: 09/16/21 12:27 [facility] [id number]) OT Summary Assessment and Plan Potential Rehabilitation Potential Good Analytic Complexity at Evaluation Low Summary OT Impairments Pain,Balance,Functional Mobility,Grooming,Dressing, Toileting,Bathing,Toilet Transfers,Shower Transfers, Activity Tolerance Progress Towards Goals Progressing Toward Goals Assessment Summary Pt's present for caregiver training for ADl needs and able to show and demonstrate good safety and understanding to be able to assist pt . Pt going home today. Discharge Recommendations OT Discharge Recommendations Home with 13/12 Assist Available Transportation Needs at Discharge Private Vehicle
[2021-09-16 11:21] VITALS: RESP 16; TEMP 37.4; O2SAT 98
== END 2021-09-16 11:08 | disposition home or self-care (01) ==
LOC: OR 15:46 → AC 15:46
PROVIDERS: Admitting Provider Physician Assistant Medical; PCP Physician Assistant; Referring Provider Orthopaedic Surgery Orthopaedic Surgery of the Spine; Visit Provider Orthopaedic Surgery Orthopaedic Surgery of the Spine
PROC: (CPT 22633; principal; 2021-09-14 07:45)
DX: M48.062 Spinal stenosis, lumbar region with neurogenic claudication (principal); M96.1 Postlaminectomy syndrome, not elsewhere classified
CPT/HCPCS: 22633; 22634 ×2; 22842; 20939; 22853 ×3; 63052; 63053 ×2; 36415; 72100; 76000; 85014; 85018; 97116; 97162; 97165; 97530; 97535; G0378; C1831; C9290; J0171; J0330; J0690; J1100; J1170; J2060; J2250; J2405; J2704; J3010

== ENCOUNTER 2025-04-24 10:46 | Outpatient (CLI) | payer MEDICARE, SELFPAY ==
[2021-09-14 16:38] VITALS: BMI 22.2
[2025-04-24 11:20] VITALS: BP 131/81; PULSE 78; RESP 16; TEMP 36.8; O2SAT 96
[2025-04-24 11:46] VITALS: BP 134/84; PULSE 87; RESP 18; O2SAT 98
[2025-04-24] MEDS: LIDOCAINE 1% (PF) 5 ML INJ (11:49)
[2025-04-24] MEDS: TRIAMCINOLONE 40 MG/ML VIAL INJ (11:50)
[2025-04-24 11:53] VITALS: BP 125/73; PULSE 83; RESP 16; O2SAT 98
[2025-04-24 12:00] VITALS: BP 142/84; PULSE 79; RESP 16; O2SAT 99
--- NOTE | 2025-04-24 15:40 | PM.PROC.IR.1 ---
Date/Time/Diagnoses Date of procedure: 04/24/25 Time of procedure: 11:00 Pre-procedure diagnosis: Lumbar radiculopathy Post-procedure diagnosis: same Procedure Notes Procedure: Interlaminar epidural steroid injection L3-4 Indications: Lumbar radiculopathy Physician: Britton Borja Total sedation minutes: 0 Complications: none Procedure in detail & Post-procedure care: Patient is here for the planned procedure today as noted. No significant change since the last office visit. For additional clinical scenario please see those office notes. Focused exam: Vital signs reviewed as charted on intake. Gen: Well developed. No acute distress. CV: RRR, no M/R/G Chest: Non-labored breathing, CTAB. Psych: Alert and well-oriented. Mood/Affect: normal. Patient suitable for the planned procedure today: Yes === The following procedure was performed in the office today: Lumbar Epidural Steroid Injection with fluoroscopic guidance - Interlaminar approach (77387) Levels Treated: L3-4 Approach: interlaminar Soft tissue: [1% lidocaine 2 mL] Test dose: [1% lidocaine 1 mL] Injectate: 1.5 mL of dexamethasone (10mg/mL) in 1.25 mL 1% lidocaine and 1.25 mL normal saline Fluoroscopy Agent: Isovue 300-M 1.5 mL Notes: 1- Note he is on Plavix, held for the procedure, last dose 6:30 a.m. 04/19/2025, and Xarelto, also held for the procedure, last dose 04/19/2025 at 6:00 p.m.. He may resume these 6 hours postprocedure. 2- Right paramedian. 3.5 in 20 gauge Touhy needle utilized and adequate. Preprocedure pain 3/10, postprocedure pain 0/10. Procedure: After discussing the risks, benefits, and alternatives to the procedure, the patient expressed understanding and wished to proceed. The risks include but are not limited to infection, allergic reaction, nerve damage, stroke, paralysis, epidural hematoma, syncope, headache, respiratory or cardiac arrest, spinal cord injury, and scar formation. Informed consent was obtained and all patient questions were answered. The patient was brought to the procedure suite and placed in the prone position. A pre-procedural pause was conducted to verify: correct patient identity, procedure to be performed and as applicable, correct side and site, correct patient position, and any special requirements. Using a paramedian approach from the side noted above, the region overlying the target was localized under fluoroscopic visualization and the soft tissues overlying this structure were infiltrated with the anesthetic listed above. With fluoroscopic guidance, a #20 gauge Tuohy needle (unless otherwise noted) was inserted into the epidural space using a paramedian approach. The epidural space was localized utilizing intermittent multiplanar fluoroscopic guidance and loss of resistance technique. After negative aspiration, the contrast noted above was injected into the epidural space and the flow of contrast was observed, confirming epidural spread without evidence of intravascular or intrathecal spread. Multi-planar radiographs were obtained for documentation purposes. A test dose of lidocaine was injected into the above noted epidural space, and the patient was observed for 30-60 seconds. No sensory deficits were reported and normal lower extremity motor function was noted. Subsequently, the injectate as noted above was administered into the level noted above. The patient tolerated the procedure well and was discharged after an appropriate period of observation. If there are any complications, the patient was instructed to call us. The patient is to follow-up with the requesting provider in 2-3 weeks. This note was compiled using voice recognition software and therefore may contain typos. Please contact the author with any questions or concerns.
--- NOTE | 2025-04-24 15:49 | PM.PROC.IR.1 ---
Date/Time/Diagnoses Date of procedure: 04/24/25 Time of procedure: 11:30 Pre-procedure diagnosis: Sacroiliitis, sacroiliac joint pain Post-procedure diagnosis: same Procedure Notes Procedure: Left sacroiliac joint injection Indications: Sacroiliitis, sacroiliac joint pain Physician: Britton Borja Total sedation minutes: 0 Complications: none Procedure in detail & Post-procedure care: Patient is here for the planned procedure today as noted. No significant change since the last office visit. For additional clinical scenario please see those office notes. Focused exam: Vital signs reviewed as charted on intake. Gen: Well developed. No acute distress. CV: RRR, no M/R/G Chest: Non-labored breathing, CTAB. Psych: Alert and well-oriented. Mood/Affect: normal. Patient suitable for the planned procedure today: Yes === The following procedure was performed today: Sacroiliac joint injection with fluoroscopic guidance (03641) Approach: Posterior, inferior pole Laterality: Left Soft tissue: [1% lidocaine 1.5 mL] Injectate: [1 mL of triamcinolone (40mg/mL) in 2 mL 1% lidocaine] Fluoroscopy Agent: Isovue 300-M 1.5 mL Notes: Preprocedure pain 4/10, postprocedure pain 1/10. Procedure: Informed consent was obtained and all patient questions were answered. After discussing the risks, benefits, and alternatives to the procedure, the patient expressed understanding and wished to proceed. The patient was brought to the procedure suite and placed in the prone position, and prepped and draped in a sterile fashion. A pre-procedural pause was conducted to verify: correct patient identity, procedure to be performed and as applicable, correct side and site, correct patient position, and any special requirements. The fluoroscopic C-arm was positioned for optimal visualization of the targeted sacroiliac (SI) joint. The inferior portion of the SI joint was localized under fluoroscopic visualization and local anesthetic was utilized for soft tissue local anesthesia. A 22 gauge spinal needle was inserted into the fluoroscopically hyperlucent region within the SI joint. Aspiration negative. If noted above, the noted contrast agent was injected and a partial arthrogram was obtained. Multiplanar imaging was performed for confirmation and appropriate images were saved. The steroid/anesthetic solution noted above was then injected into the SI joint. The patient tolerated the procedure well and was discharged after an appropriate period of observation. If there are any complications or concerns, the patient was instructed to call us. The patient is to follow-up with the ordering provider in 2-3 weeks/as planned. This note was compiled using voice recognition software and therefore may contain typos. Please contact the author with any questions or concerns.
== END 2025-04-24 12:08 | disposition home or self-care (01) ==
PROVIDERS: PCP Physician Assistant; Referring Provider Physical Medicine & Rehabilitation; Visit Provider Physical Medicine & Rehabilitation
DX: M46.1 Sacroiliitis, not elsewhere classified (principal); M53.3 Sacrococcygeal disorders, not elsewhere classified
CPT/HCPCS: 27096